=== PATIENT | female | born 1990 | race Caucasian/White ===

== ENCOUNTER 2017-02-01 14:21 | Emergency (ER) | payer MEDICAID ==
[~2017-02-01] VITALS: Ht 149.9 cm; Wt 66.0 kg
[2017-02-01 14:36] VITALS: BP 111/54
== END 2017-02-01 17:53 | disposition home or self-care (01) ==
LOC: ER 15:17
DX: O26.891 Other specified pregnancy related conditions, first trimester (principal); Z3A.13 13 weeks gestation of pregnancy; T63.311A Toxic effect of venom of black widow spider, accidental (unintentional), initial encounter; Y92.69 Other specified industrial and construction area as the place of occurrence of the external cause
CPT/HCPCS: 99282